=== PATIENT | female | born 1940 | race Caucasian/White ===

== ENCOUNTER → 2018-02-01 | Outpatient (CLI) | payer MEDICARE, OTHER | END | disposition home or self-care (01) | LOC: RAH 14:19 | PROVIDERS: ATTEND Pediatrics | DX: Z12.31 Encounter for screening mammogram for malignant neoplasm of breast (principal) | CPT/HCPCS: 77067 ==

== ENCOUNTER 2018-10-10 13:32 | Inpatient (IN) | payer MEDICARE ==
[~2018-10-10] VITALS: Ht 165.1 cm; Wt 67.0 kg
[2018-10-10] VITALS (33 sets, daily range): BP systolic 117–155; BP diastolic 70–114
[2018-10-10] MEDS ORDERED: ATROPINE SULFATE 0.1 MG/ML 10 ML SYG IVP ONE (13:38)
[2018-10-10] MEDS ORDERED: BIVALIRUDIN 250 MG/VIAL IV ONE (13:38)
[2018-10-10] MEDS ORDERED: IOHEXOL 350 MG/ML 100ML INFUS..BTL IV ONE (13:39)
[2018-10-10] MEDS ORDERED: LIDOCAINE HCL 2% 20ML ONE (13:39)
[2018-10-10] MEDS ORDERED: NITROGLYCERIN 5 MG/ML 10 ML VIAL IV ONE (13:39)
[2018-10-10] MEDS ORDERED: DOPAMINE HCL 400 MG/D5%-WATER 0 ML IV ONE (13:39)
[2018-10-10] MEDS ORDERED: PROPOFOL 1000 MG/100 ML 100 ML IV ONE ×2 (13:41→18:29)
[2018-10-10 13:52] LABS: CREATININE 0.9 mg/dL (0.5-1.5); POTASSIUM 3.7 mmol/L (3.5-5.1)
[2018-10-10] MEDS ORDERED: MIDAZOLAM HCL 1 MG/ML 2ML VIAL ONE (13:54)
[2018-10-10] MEDS ORDERED: FENTANYL CITRATE PF 50 MCG/1 ML 2ML VIAL ONE (13:55)
[2018-10-10] MEDS ORDERED: ROCURONIUM 10MG/1ML SYR 10 MG/ML ML ONE (13:55)
[2018-10-10] MEDS ORDERED: PROPOFOL 10 MG/ML 20ML VIAL IV ONE (13:55)
[2018-10-10 14:00] LABS: INR 1.02 (0.85-1.15); PARTIAL THROMBOPLASTIN TIME 28.9 SEC (26.3-35.5); PROTHROMBIN TIME 10.7 SEC (9.6-11.6)
[2018-10-10] MEDS ORDERED: HEPARIN SODIUM 1000UNIT/ML 10ML VIAL ONE (14:02)
[2018-10-10 14:03] LABS: BASOPHILS % (AUTO) 0.9 % (0.0-5.0); EOSINOPHILS % (AUTO) 0.4 % (0.0-8.0); HEMATOCRIT 36.3 % (36-48); LYMPHOCYTES % (AUTO) 11.1 % (21.0-51.0); MEAN CORPUSCULAR HEMOGLOBIN 30.6 pg (27.0-33.0); MEAN CORPUSCULAR HGB CONC 33.7 g/dL (32.0-36.0); MEAN CORPUSCULAR VOLUME 90.8 fL (79-99); MONOCYTES % (AUTO) 5.8 % (3.0-13.0); NEUTROPHILS % (AUTO) 81.8 % (40.0-77.0); PLATELET COUNT (AUTO) 246 K/uL (130-400); WHITE BLOOD COUNT (AUTO) 9.6 K/uL (4.8-10.8)
[2018-10-10 14:06] LABS: ALBUMIN 2.6 g/dL (3.5-5.0); BILIRUBIN,TOTAL 0.3 mg/dL (0.2-1.0); TOTAL PROTEIN, SERUM 5.8 g/dL (6.0-8.3)
[2018-10-10] MEDS ORDERED: EPTIFIBATIDE 75MG/100ML BOTTLE 100 ML IV ONE (14:06)
[2018-10-10] MEDS ORDERED: EPTIFIBATIDE 2 MG/ML 10 ML VIAL IVP ONE (14:06)
[2018-10-10] MEDS ORDERED: HEPARIN 25000 UNITS/250 ML D5W 250 ML IV ONE (15:08)
[2018-10-10] MEDS ORDERED: MORPHINE SULFATE 2 MG/ML 1ML SYG IV PRN (15:15)
[2018-10-10] MEDS ORDERED: MORPHINE SULFATE 4 MG/1ML SYG IV PRN (15:15)
[2018-10-10] MEDS ORDERED: GLUCAGON 1MG KIT 1 MG ML IM PRN (15:15)
[2018-10-10] MEDS ORDERED: PROPOFOL 10 MG/ML 20ML VIAL IV SCH (15:15)
[2018-10-10] MEDS ORDERED: ONDANSETRON HCL 4 MG/2 ML VIAL IV PRN (15:15)
[2018-10-10] MEDS ORDERED: DEXTROSE 50%-WATER 50 ML DISP.SYRIN IV PRN (15:15)
[2018-10-10] MEDS ORDERED: PRASUGREL HCL 10 MG TABLET ONE (15:41)
[2018-10-10] MEDS ORDERED: ASPIRIN 81MG TAB.CHEW ONE (15:41)
[2018-10-10] MEDS ORDERED: SODIUM CHLORIDE 0.9% 500ML 500 ML IV ONE (16:06)
[2018-10-10] MEDS ORDERED: PRASUGREL HCL 10 MG TABLET PO ONE (16:30)
[2018-10-10] MEDS ORDERED: HEPARIN 25,000 UNITS/250 ML IV PRN (16:30)
[2018-10-10] MEDS ORDERED: ENALAPRILAT DIHYDRATE 1.25MG/ML 1ML VIAL IV SCH (16:30)
[2018-10-10] MEDS ORDERED: SODIUM CHLORIDE 0.9% 1000ML 1,000 ML IV SCH (16:30)
[2018-10-10] MEDS ORDERED: HEPARIN IV SCH ×4 (16:45)
[2018-10-10] MEDS ORDERED: NS IV SCH (16:45)
[2018-10-10] MEDS ORDERED: SODIUM CHLORIDE IV SCH ×4 (16:45)
[2018-10-10] MEDS ORDERED: DEXTROSE IJ PRN ×3 (16:45)
[2018-10-10] MEDS ORDERED: HEPARIN IJ PRN ×3 (16:45)
--- NOTE | 2018-10-10 17:00 | NUR ---
HYPOTHERMIA COOLING BEGUN ORDERED UTILIZING [facility] COOLING SYSTEM
[2018-10-10 17:04] LABS: ABG BASE EXCESS -6.7 mmol/L (-2.0-3.0); ABG HCO3 19.9 mmol/L (21.0-28.0); ABG OXYGEN SATURATION 99.9 % (95.0-99.0); ABG PCO2 44 mmHg (32-45)
[2018-10-10 17:29] LABS: HEMATOCRIT 39.8 % (36-48); MEAN CORPUSCULAR HEMOGLOBIN 30.7 pg (27.0-33.0); MEAN CORPUSCULAR HGB CONC 33.4 g/dL (32.0-36.0); MEAN CORPUSCULAR VOLUME 91.9 fL (79-99); PLATELET COUNT (AUTO) 273 K/uL (130-400); RED BLOOD CELL COUNT(AUTO) 4.33 MIL/uL (4.00-5.50); RED CELL DISTRIBUTION WIDTH 14.1 % (11.0-15.5); WHITE BLOOD COUNT (AUTO) 12.8 K/uL (4.8-10.8)
[2018-10-10 17:39] LABS: CREATININE 0.8 mg/dL (0.5-1.5); POTASSIUM 4.2 mmol/L (3.5-5.1)
[2018-10-10 17:43] LABS: ALBUMIN 2.9 g/dL (3.5-5.0); BILIRUBIN,TOTAL 0.5 mg/dL (0.2-1.0); MAGNESIUM 1.9 mg/dL (1.80-2.40); TOTAL PROTEIN, SERUM 6.5 g/dL (6.0-8.3)
[2018-10-10 17:46] LABS: ABG BASE EXCESS -2.7 mmol/L (-2.0-3.0); ABG HCO3 21.8 mmol/L (21.0-28.0); ABG OXYGEN SATURATION 99.5 % (95.0-99.0); ABG PCO2 37 mmHg (32-45)
[2018-10-10] MEDS ORDERED: ESTROGEN PATCH TP (17:51)
[2018-10-10 18:00] LABS: B-TYPE NATRIURETIC PEPTIDE 47 pg/mL (0-100)
[2018-10-10] MEDS: INSULIN HUMULIN R 100 UNIT/ML 3ML SQ SCH (18:00)
[2018-10-10] MEDS ORDERED: ENALAPRILAT DIHYDRATE 1.25 MG/ML 2ML VIAL IVP ONE (18:04)
--- NOTE | 2018-10-10 18:07 | NUR ---
PT HAS BEEN SEEN BY DR ANDRE AND DR MERCADO AT THE BEDSIDE. DR DEL CID HAS BEEN NOTIFIED OF CONSULT. . PT IS ON VENT AC RATE 16/TV-500/PEEP-5/FIO2 50%. BBS PRESENT. GARNETT CATH HAS BEEN INSERTED BY Janeth REY RN. RT GORIN WITH NO HEMATOMA OR BLEEDING. LEFT LOWER LEG I.O. CATH IN PLACE. RT VENOUS FEMORAL SHEATH IS PATENT. SWAN TO RT GROIN LUX AT 70CM. IMPELLA CATH LUX AT 88CM. VS STABLE . FIRST SET OF HEMODYNAMICS DONE.
[2018-10-10] MEDS ORDERED: PROPOFOL 1000 MG/100 ML IV PRN (18:30)
[2018-10-10] MEDS: DEXTROSE IJ PRN ×2 (18:37)
[2018-10-10] MEDS: HEPARIN SODIUM IJ PRN ×2 (18:37)
[2018-10-10 19:07] LABS: TROPONIN I 509.98 ng/mL (0.00-0.06)
--- NOTE | 2018-10-10 19:51 | NUR ---
Dr. Elder notification Dr. Elder notified of patient's current status and hemodynamic vitals signs. No orders received
[2018-10-10] MEDS: ATORVASTATIN CALCIUM 40 MG TABLET PO SCH (21:00)
[2018-10-10] MEDS: CHLORHEXIDINE GLUCONATE 473 ML MOUTHWASH MM SCH (21:58)
[2018-10-10] MEDS: ENALAPRILAT DIHYDRATE 1.25MG/ML 1ML VIAL IV SCH (22:59)
[2018-10-10] MEDS: PROPOFOL 1000 MG/100 ML 100 ML IV PRN (23:00)
[2018-10-11] VITALS (39 sets, daily range): BP systolic 73–160; BP diastolic 42–95
[2018-10-11 00:40] LABS: TROPONIN I 277.31 ng/mL (0.00-0.06)
[2018-10-11 00:46] LABS: APPEARANCE,URINE CLOUDY (CLEAR); BILIRUBIN,URINE SMALL (NEGATIVE); COLOR,URINE ORANGE (YELLOW); GLUCOSE, URINE (UA) NEGATIVE (NEGATIVE); KETONES,URINE 15 mg/dL (NEGATIVE); LEUKOCYTE ESTERASE ,URINE TRACE (NEGATIVE); NITRATE,URINE POSITIVE (NEGATIVE); OCCULT BLOOD,URINE LARGE (NEGATIVE); PROTEIN,URINE 100 mg/dL (NEGATIVE)
[2018-10-11 00:56] LABS: CREATININE 0.6 mg/dL (0.5-1.5); MAGNESIUM 1.7 mg/dL (1.80-2.40)
--- NOTE | 2018-10-11 01:19 | NUR ---
Impella suppor line called. Called impella support tech rep. notified or urine output and waveform on impella for opinion.
[2018-10-11] MEDS: MAGNESIUM 2GM PREMIX 50ML 50 ML IV PRN (01:38)
[2018-10-11 01:41] LABS: BACTERIA,URINE Moderate /HPF (None Seen); RBC,URINE TNTC /HPF (0-1)
--- NOTE | 2018-10-11 01:58 | NUR ---
Dr. York called multiple times First notification pending call back at [phone]: Dr. York called to notify of patients current status, hemodynamic vital signs, changes in HR to sinus bradycardia with frequent PVC's, hematuria, UA results, severe decrease in urine output despite fluids running, awating call back. Second notification with pending call back at [phone]. third notification with pending call back at 05: Called to notify Dr. York of same pt condition and morning labs result. Fourth notification with pending call back at 0555: Tried MD pager still no call back
--- NOTE | 2018-10-11 02:30 | NUR ---
Dr. Elder notification Dr. Elder notified of patient's current status, hemodynamic vital signs, changes in HR to sinus bradycardia with frequent PVC's, hematuria, UA results, severe decrease in urine output despite fluids running, no orders received
[2018-10-11 04:25] LABS: ABG BASE EXCESS -3.1 mmol/L (-2.0-3.0); ABG HCO3 20.1 mmol/L (21.0-28.0); ABG OXYGEN SATURATION 98.9 % (95.0-99.0); ABG PCO2 31 mmHg (32-45)
[2018-10-11] MEDS: ENALAPRILAT DIHYDRATE 1.25MG/ML 1ML VIAL IV SCH ×3 (04:30→15:24)
[2018-10-11] MEDS: PROPOFOL 1000 MG/100 ML 100 ML IV PRN ×4 (04:40→20:31)
[2018-10-11 04:56] LABS: HEMATOCRIT 36.9 % (36-48); MEAN CORPUSCULAR HEMOGLOBIN 31.3 pg (27.0-33.0); MEAN CORPUSCULAR HGB CONC 34.3 g/dL (32.0-36.0); MEAN CORPUSCULAR VOLUME 91.4 fL (79-99); PLATELET COUNT (AUTO) 284 K/uL (130-400); RED BLOOD CELL COUNT(AUTO) 4.03 MIL/uL (4.00-5.50); RED CELL DISTRIBUTION WIDTH 14.2 % (11.0-15.5); WHITE BLOOD COUNT (AUTO) 12.7 K/uL (4.8-10.8)
[2018-10-11 05:13] LABS: B-TYPE NATRIURETIC PEPTIDE 193 pg/mL (0-100)
[2018-10-11 05:17] LABS: ALANINE AMINOTRANSFERASE 63 U/L (12-78); ALBUMIN 2.6 g/dL (3.5-5.0); BILIRUBIN,DIRECT < 0.1 mg/dL (0.0-0.3); BILIRUBIN,TOTAL 0.8 mg/dL (0.2-1.0); CARBON DIOXIDE 24 mmol/L (21-32); CHLORIDE 103 mmol/L (101-111); CHOLESTEROL 176 mg/dL (<200); CREATININE 0.8 mg/dL (0.5-1.5); GLOMERULAR FILTR. RATE CALC 74 mL/min (>60); GLUCOSE,RANDOM 126 mg/dL (70-105); HDL CHOLESTEROL 63 mg/dL (35-85); LDL DIRECT 103 mg/dL (0-99); PHOSPHORUS 2.2 mg/dL (2.5-4.9); POTASSIUM 4.1 mmol/L (3.5-5.1); SODIUM SERUM 137 mmol/L (136-145); TOTAL PROTEIN, SERUM 5.9 g/dL (6.0-8.3); TRIGLYCERIDES 578 mg/dL (30-200); UREA NITROGEN, BLOOD 16 mg/dL (7-18)
[2018-10-11 05:21] LABS: BAND NEUTROPHILS % (MANUAL) 3 % (0-2); LYMPHOCYTES % (MANUAL) 23 % (22-44); SEGMENTED NEUTROPHILS % 74 % (40-70)
[2018-10-11 05:23] LABS: MAN.DIFF COMMENT-IMPRESSION MANUAL DIFFERENTIAL
[2018-10-11 05:24] LABS: PLATELET MORPHOLOGY COMMENT ADEQUATE
[2018-10-11 05:34] LABS: ASPARTATE AMINOTRANSFERASE 440 U/L (10-37)
--- NOTE | 2018-10-11 05:35 | NUR ---
Dr. Elder notification Dr. Elder notified of patients current status, urine color, urine output, morning ABG results, morning labs, current medications, and most recent hemodynamic vital signs. orders received, readback, and entered into system.
[2018-10-11 05:41] LABS: HEMOGLOBIN A1C 5.5 % (4.0-6.0)
[2018-10-11] MEDS ORDERED: DEXTROSE 5%-WATER 500 ML IV ONE (05:46)
[2018-10-11] MEDS: INSULIN HUMULIN R 100 UNIT/ML 3ML SQ SCH ×4 (06:00→17:39)
[2018-10-11] MEDS ORDERED: LACTATED RINGERS 1000ML IV ONE (06:00)
[2018-10-11 06:01] LABS: TROPONIN I 131.02 ng/mL (0.00-0.06)
[2018-10-11] MEDS: LACTATED RINGERS 1000ML 1,000 ML IV ONE ×2 (06:02→06:44)
[2018-10-11] MEDS: CEFTRIAXONE SODIUM 1 GM IVP SCH (07:11)
--- NOTE | 2018-10-11 08:35 | NUR ---
SEDATED. AIRWAY PATENT AND ET TUBE INTACT. BBS PRESENT. OG WITH COFFEE GROUND CONTENTS TO LIWS. RT HAND AND ARM ARE EDEMATOUS AND TIGHT. RADIAL PULSES PRESENT TO RT ARM BY DOPPLER. I REMOVED THE DRESSING TO ALLOW BETTER BLOOD FLOW AND WILL NOT TAKE BP ON THIS RT ARM. RT ARM ELEVATED ON PILLOW. WILL FOLLOW O2SATS FOR NOW -NO ABG'S. GARNETT CATH URINE OUTPUT DECREASED AND NOW CONCENTRATED AND CLOUDY PINK TINGED. INTRAOSSEOUS NEEDLE REMOVED INTACT FROM LEFT TIBIA. CXR REVIEWED AND IMPELLA CATH AND SWAN IN SAME PLACE FROM YESTERDAY. SWAN LUX AT 70CM AND IMPELLA AT 88CM. RT GROIN CATH SITE INTACT. HEPARIN HAS BEEN RESUMED AT A TOTAL OF 750 UNITS PER HR COMBINED WITH IMPELLA INPUT (200 UNITS IV/550 UNITS IMPELLA).
--- NOTE | 2018-10-11 09:12 | NUR ---
BELONGINGS- 5 SILVER COLORED RINGS WITH CRYSTAL COLORED STONES GIVEN TO PATO WORRELL YESTERDAY DURING ADMISSION
[2018-10-11] MEDS: CHLORHEXIDINE GLUCONATE 473 ML MOUTHWASH MM SCH ×2 (09:51→20:32)
[2018-10-11] MEDS: FAMOTIDINE/PF 20 MG/2 ML VIAL IV SCH (09:51)
[2018-10-11] MEDS: ASPIRIN 81MG TAB.CHEW PO SCH (09:51)
[2018-10-11] MEDS: PRASUGREL HCL 10 MG TABLET PO SCH (10:02)
[2018-10-11] MEDS ORDERED: LACTATED RINGERS 1000ML 1,000 ML IV SCH (11:45)
[2018-10-11] MEDS: SODIUM CHLORIDE 0.9% 1000ML 1,000 ML IV SCH ×2 (11:58→20:31)
--- NOTE | 2018-10-11 12:00 | NUR ---
DR MERCADO AND DR ANDRE BOTH AT BEDSIDE MAKING ROUNDS AND CONSULTING WITH EACH OTHER. BOTH GAVE ORDERS. HEPARIN IV DRIP IS OFF AND WE WILL ONLY UTILIZE THE HEPARIN BEING GIVEN BY THE IMPELLA DEVICE. BOTH MDS ARE AWARE OF THE RT HAND HEMATOMA .
[2018-10-11] MEDS: LISINOPRIL 5 MG TABLET PO SCH ×2 (12:05→20:32)
[2018-10-11] MEDS ORDERED: LISINOPRIL 5 MG TABLET PO SCH (12:40)
--- NOTE | 2018-10-11 13:12 | NUR ---
NEURO- PT IS RESPONSIVE NOW. OPENS EYES TO VOICE. NODS YES AND NO. CALM.COMFORTABLE
--- NOTE | 2018-10-11 13:56 | NUR ---
PT TEMP NOW 97.6-COOLING SYSTEM REMOVED. SHE IS MOVING ALL 4 EXTREMITIES AT RANDOM
--- NOTE | 2018-10-11 15:49 | NUR ---
PT'S MR PATO WORRELL CALLED US AND I GAVE HIM AN UPDATE ON HIS 'S STATUS. HE IS AN ILL AND DISABLED MAN AND ASKED ME TO HAVE HIS NEIGHBORS BE GIVEN INFO FREELY. I LET HIM KNOW THAT WE WOULD HONOR HIS REQUEST BUT HE STILL HAS TO GIVE CONSENT AND BE PRESENT WITH ALL DISCUSSIONS VIA PHONE OR AT BEDSIDE. I LET HIM KNOW THAT HE WOULD STILL HAVE TO BE THE ONE TO MAKE ALL DECISIONS UNTIL HIS CAN SPEAK FOR HERSELF.
--- NOTE | 2018-10-11 16:42 | NUR ---
DC PLAN VISITED WITH PATIENT. PATIENT IN CRITICAL CONDITION. NO FAMILY AT BEDSIDE. PATIENT IS VENTED. Addendum: 10/11/18 at 1650 by PHOENIX CERVANTES RN CM Amended: Links added.
--- NOTE | 2018-10-11 18:38 | NUR ---
DR ANDRE NOTIFIED WITH CURRENT URINE OUTPUT,VS,IVF'S,CVP,PAWP. NO NEW ORDERS FROM DR ANDRE. PAWP NOW 9. GIVING NS 300ML BOLUS PER DR MERCADO ORDERS.
--- NOTE | 2018-10-11 19:30 | NUR ---
ASSESSMENT PT RESTING IN BED INTUBATED, SEDATED WITH IMPELLA AT IN USE AT BEDSIDE. SEE IMPELLA FLOW SHEET, NURSING ASSESSMENT, ANTICOAGULATION RECORD FOR MORE INFORMATION. CALLBELL WITHIN REACH, WHITE BOARD UP-DATED.
[2018-10-11] MEDS: ATORVASTATIN CALCIUM 40 MG TABLET PO SCH (20:31)
[2018-10-12] VITALS (35 sets, daily range): BP systolic 70–151; BP diastolic 38–89
[2018-10-12 00:48] LABS: INR 0.99 (0.85-1.15); PARTIAL THROMBOPLASTIN TIME 41.8 SEC (26.3-35.5); PROTHROMBIN TIME 10.4 SEC (9.6-11.6)
[2018-10-12] MEDS: PROPOFOL 1000 MG/100 ML 100 ML IV PRN ×4 (00:53→23:11)
[2018-10-12 03:59] LABS: BASOPHILS % (AUTO) 0.6 % (0.0-5.0); EOSINOPHILS % (AUTO) 0.2 % (0.0-8.0); HEMATOCRIT 30.5 % (36-48); LYMPHOCYTES % (AUTO) 7.7 % (21.0-51.0); MEAN CORPUSCULAR HEMOGLOBIN 31.1 pg (27.0-33.0); MEAN CORPUSCULAR HGB CONC 34.3 g/dL (32.0-36.0); MEAN CORPUSCULAR VOLUME 90.6 fL (79-99); MONOCYTES % (AUTO) 8.3 % (3.0-13.0); NEUTROPHILS % (AUTO) 83.2 % (40.0-77.0); NUCLEATED RED BLOOD CELLS 0.1 % (0.0-0.19); PLATELET COUNT (AUTO) 201 K/uL (130-400); RED BLOOD CELL COUNT(AUTO) 3.37 MIL/uL (4.00-5.50); RED CELL DISTRIBUTION WIDTH 14.8 % (11.0-15.5); WHITE BLOOD COUNT (AUTO) 13.8 K/uL (4.8-10.8)
[2018-10-12 04:07] LABS: INR 1.01 (0.85-1.15); PARTIAL THROMBOPLASTIN TIME 43.2 SEC (26.3-35.5); PROTHROMBIN TIME 10.6 SEC (9.6-11.6)
[2018-10-12 04:11] LABS: B-TYPE NATRIURETIC PEPTIDE 151 pg/mL (0-100)
[2018-10-12 04:38] LABS: ALBUMIN 2.1 g/dL (3.5-5.0); BILIRUBIN,TOTAL 0.4 mg/dL (0.2-1.0); CREATININE 0.7 mg/dL (0.5-1.5); PHOSPHORUS 2.8 mg/dL (2.5-4.9); POTASSIUM 3.4 mmol/L (3.5-5.1); TOTAL PROTEIN, SERUM 5.1 g/dL (6.0-8.3)
--- NOTE | 2018-10-12 05:12 | NUR ---
DR KEVIN BROWN MADE AWARE OF PT/PTT/INR. NO NEW ORDERS AT PRESENT.
[2018-10-12 05:15] LABS: TROPONIN I 44.95 ng/mL (0.00-0.06)
[2018-10-12] MEDS: INSULIN HUMULIN R 100 UNIT/ML 3ML SQ SCH ×4 (06:00→17:55)
[2018-10-12] MEDS: CEFTRIAXONE SODIUM 1 GM IVP SCH (06:21)
--- NOTE | 2018-10-12 06:45 | NUR ---
REPORT BEDSIDE REPORT GIVEN TO KAITLYNN DIAZ.
[2018-10-12] MEDS: HEPARIN SODIUM IJ PRN ×2 (06:51)
[2018-10-12] MEDS: DEXTROSE IJ PRN ×2 (06:51)
[2018-10-12] MEDS: POTASSIUM CHLORIDE 20MEQ/100ML 100 ML IV PRN (07:41)
[2018-10-12] MEDS: CHLORHEXIDINE GLUCONATE 473 ML MOUTHWASH MM SCH ×2 (07:42→20:26)
--- NOTE | 2018-10-12 07:50 | NUR ---
PT ASSESSED. SEDATION VACATION PERFORMED- SHE IS ABLE TO OPEN EYES,NODS YES AND NO, MOVES ALL EXTREMITIES ON COMMAND. RTH HAND SWELLING IS IMPROVING AND BEGINNING TO SOFTEN. I HAVE IT ELEVATED ABOVE HEART AND RT HAND HAS STRONG PALPABLE RADIAL PULSES. NO BLEEDING NOTED TO RT RADIAL ABG SITE. I HAVE PLACED AN ARM PRECAUTION BAND TO RT WRIST AND SIGN TO DOOR. FOR COMFORT I HAVE RESTARTED DIPRIVAN. RT GROIN IMPELLA AND SWAN SITE WITH NO HEMATOMA.
--- NOTE | 2018-10-12 08:22 | NUR ---
CHART CHECK COMPLETED. PATIENT INFORMATION: Pt IS A 78 YEAR OLD FEMALE ADMITTED SECONDARY TO [id number] AR[facility] SECONDARY TO PULSELESS VENTRICULAR TACHYCARDIA, MS, S/P LEFT HEART CATH WITH STENTING OF LAD. Pt HAS A PAST MEDICAL HISTORY SIGNIFICANT FOR ACUTE SYSTOLIC HEART FAILURE, AND COPD. RECOMMEND SKILLED SPEECH THERAPY 24 HOURS S/P EXTUBATION. TOBACCO SWEEPER COORDINATED CARE WITH NURSE DONALD. Addendum: 10/12/18 at 0825 by WING LYMAN Amended: Links added.
--- NOTE | 2018-10-12 08:27 | NUR ---
DR MERCADO HAS FINISHED AM ROOUNDS WITH PATIENT. UPDATED ON STATUS (MEDS/VS/IO'S/LABS/HEMODYNAMICS).. HE HAS HAD ME REDUCE FLOW RATE ON IMPELLA TO 2 AT PRESENT TIME. WILL REASSESS CO/PAWP AND REPORT TO HIM BRY.
[2018-10-12] MEDS: PRASUGREL HCL 10 MG TABLET PO SCH (09:00)
--- NOTE | 2018-10-12 09:00 | NUR ---
DR MERCADO CONTACTED WITH PAWP/CARDIAC OUTPUTS POST IMPELLA CHANGES- HE HAS ASKED ME TO CONSULT DR NGUYEN FOR IMPELLA REMOVAL.
--- NOTE | 2018-10-12 09:15 | NUR ---
CONTACTED - HE CANNOT PHYSICALLY COME IN TO SIGN CONSENT HE IS DISABLED AND HAS O2 AT HOME. HE GAVE TELEPHONE CONSENT FOR REMOVAL OF IMPELLA DEVICE.HE ASKS ME TO SPEAK TO RODGER PERKINS HIS NEIGHBOR WHEN SHE ARRIVES
[2018-10-12 09:21] LABS: HEMATOCRIT 29.9 % (36-48); MEAN CORPUSCULAR HEMOGLOBIN 30.5 pg (27.0-33.0); MEAN CORPUSCULAR HGB CONC 34.1 g/dL (32.0-36.0); MEAN CORPUSCULAR VOLUME 89.6 fL (79-99); PLATELET COUNT (AUTO) 190 K/uL (130-400); RED BLOOD CELL COUNT(AUTO) 3.34 MIL/uL (4.00-5.50); RED CELL DISTRIBUTION WIDTH 14.7 % (11.0-15.5); WHITE BLOOD COUNT (AUTO) 14.1 K/uL (4.8-10.8)
--- NOTE | 2018-10-12 09:30 | NUR ---
SWAN YOEL CATH REMOVED INTACT FROM RT GROIN VENOUS SHEATH. SHEATH REMAINS IN PLACE AND HAS IVF RUNNING THROUGH IT.
--- NOTE | 2018-10-12 09:33 | NUR ---
DR VICK HERE AND SEE'S PATIENT. HISTORY OF EVENTS SHARED WITH MD. HE WILL BE DOING REMOVAL OF IMPELLA TODAY. ORDERS RECEIVED
[2018-10-12 09:41] LABS: LYMPHOCYTES % (MANUAL) 10 % (22-44); MONOCYTES % (MANUAL) 4 % (2-9); SEGMENTED NEUTROPHILS % 86 % (40-70)
[2018-10-12 09:42] LABS: MAN.DIFF COMMENT-IMPRESSION MANUAL DIFFERENTIAL; PLATELET MORPHOLOGY COMMENT ADEQUATE
[2018-10-12] MEDS: ASPIRIN 81MG TAB.CHEW PO SCH (09:55)
[2018-10-12] MEDS: LISINOPRIL 5 MG TABLET PO SCH ×3 (09:56→20:26)
[2018-10-12] MEDS: FAMOTIDINE/PF 20 MG/2 ML VIAL IV SCH (09:56)
--- NOTE | 2018-10-12 11:37 | NUR ---
PT TAKEN TO O.R. BY SURGICAL TEAM
[2018-10-12] MEDS ORDERED: BACITRACIN 50,000 UNIT VIAL ONE (11:52)
[2018-10-12] MEDS ORDERED: OCTYL 2-CYANOACRYLATE 1 EACH TP ONE (11:52)
[2018-10-12] MEDS ORDERED: CEFAZOLIN SODIUM 1 GM VIAL ONE (11:54)
[2018-10-12] MEDS ORDERED: FENTANYL CITRATE PF 50 MCG/1 ML 5ML AMP IV ONE (12:13)
[2018-10-12] MEDS ORDERED: MIDAZOLAM HCL 1 MG/ML 5ML VIAL ONE (12:24)
[2018-10-12] MEDS: SODIUM CHLORIDE 0.9% 1000ML 1,000 ML IV SCH (13:11)
--- NOTE | 2018-10-12 13:35 | NUR ---
NAM PLAN PATIENT DOWN FOR PROCEDURE REMOVAL OF IMPALLA. NO FAMILY IN ROOM. LARISA WILL CONTINUE TO FOLLOW. Addendum: 10/12/18 at 1336 by PHOENIX CERVANTES RN CM Amended: Links added.
[2018-10-12] MEDS ORDERED: VANCOMYCIN PROTOCOL PER PHARMACY IV SCH (14:00)
[2018-10-12] MEDS ORDERED: ZOSYN 3.375GM+NS 50ML 50 ML IV SCH (14:00)
[2018-10-12] MEDS ORDERED: COMPOUND IV REFRIGERATED 1 EACH IVSOLN MISC PRN (14:00)
--- NOTE | 2018-10-12 14:00 | NUR ---
DR MERCADO CALLED AT HIS OFFICE-MESSAGE LEFT FOR HIM TO CALL ME. IT IS IN REGARDS TO PT JUNCTIONAL RHYTHM RATE OF 97. ALSO TO LET HIM KNOW POST OP STATUS. PT RT GROIN CUTDOWN SITE DRESSING CLEAN AND DRY ALSO NO BLEEDING FROM OLD VENOUS SHEATH SITE. BOTH THE IMPELLA CATHETER AND VENOUS SHEATH ARE GONE. PT NOW HAS A LEFT AXILLARY ARTERIAL LINE AND THAT SITE IS INTACT WITH NO HEMATOMA OR BLEEDING. ALL PERIPHERAL PULSES ARE PALPABLE FROM WRISTS TO FEET. EKG DONE TO CAPTURE JUNCTIONAL RYTHM. HR IS INTERMITTENT SINUS RHYTHM/JUNCTIONAL . PT ON PREVIOUS VENT SETTINGS. I HAVE NOT RESUMED DIPRIVAN DUE TO LOW BP. SHE IS OPENING EYES AN HAS COUGH REFLE
--- NOTE | 2018-10-12 14:50 | NUR ---
DR MERCADO CALLS ME BACK-ORDERS RECEIVED
[2018-10-12] MEDS ORDERED: ATROPINE SULFATE 0.1 MG/ML 10 ML SYG IVP PRN (15:00)
[2018-10-12] MEDS: VANCOMYCIN 1.25 GM in SODIUM CHLORIDE 0.9% 250 ML IV SCH (15:04)
--- NOTE | 2018-10-12 15:30 | NUR ---
PT ARTERIAL SBP FALLS BELOW 80 WITH JUNCTIONAL RHYTHM (NO P WAVES). I HAVE GIVEN THE ATROPINE THAT DR MERCADO ORDERED AND RHYTHM CHANGED TO SINUS TACH 113 WITH P WAVES. ABP IMPROVED TO 94/51
[2018-10-12] MEDS: ZOSYN 3.375GM+NS 50ML 50 ML IV SCH ×2 (17:06→23:09)
--- NOTE | 2018-10-12 19:10 | NUR ---
HAND OFF REPORT AND CHART REVIEW DONE WITH ANDRE DIAZ
--- NOTE | 2018-10-12 19:30 | NUR ---
ASSESSMENT PT RESTING IN BED INTUBATED, SEDATED. SEE [facility] NURSING ASSESSMENT FLOW SHEET FOR MORE INFORMATION. MELONIE REVIEWED AND WITHIN DONTAE, WHITE BOARD UP-DATED.
[2018-10-12] MEDS: ATORVASTATIN CALCIUM 40 MG TABLET PO SCH (20:26)
[2018-10-13] VITALS (24 sets, daily range): BP systolic 83–153; BP diastolic 40–84
[2018-10-13] MEDS: VANCOMYCIN 1.25 GM in SODIUM CHLORIDE 0.9% 250 ML IV SCH ×2 (01:39→14:03)
[2018-10-13 03:40] LABS: BASOPHILS % (AUTO) 0.5 % (0.0-5.0); EOSINOPHILS % (AUTO) 0.4 % (0.0-8.0); HEMATOCRIT 23.3 % (36-48); LYMPHOCYTES % (AUTO) 7.5 % (21.0-51.0); MEAN CORPUSCULAR HEMOGLOBIN 30.9 pg (27.0-33.0); MEAN CORPUSCULAR HGB CONC 34.3 g/dL (32.0-36.0); MEAN CORPUSCULAR VOLUME 89.9 fL (79-99); MONOCYTES % (AUTO) 8.5 % (3.0-13.0); NEUTROPHILS % (AUTO) 83.1 % (40.0-77.0); PLATELET COUNT (AUTO) 154 K/uL (130-400); RED CELL DISTRIBUTION WIDTH 14.8 % (11.0-15.5); WHITE BLOOD COUNT (AUTO) 13.1 K/uL (4.8-10.8)
[2018-10-13 04:01] LABS: CREATININE 0.8 mg/dL (0.5-1.5); POTASSIUM 3.6 mmol/L (3.5-5.1)
[2018-10-13] MEDS: INSULIN HUMULIN R 100 UNIT/ML 3ML SQ SCH ×4 (06:00→17:55)
[2018-10-13] MEDS: SODIUM CHLORIDE 0.9% 1000ML 1,000 ML IV SCH (06:07)
[2018-10-13] MEDS: POTASSIUM CHLORIDE 20MEQ/100ML 100 ML IV PRN (06:08)
[2018-10-13] MEDS: ZOSYN 3.375GM+NS 50ML 50 ML IV SCH ×2 (08:38→17:29)
[2018-10-13] MEDS: LISINOPRIL 5 MG TABLET PO SCH ×3 (09:00→21:45)
[2018-10-13] MEDS: FAMOTIDINE/PF 20 MG/2 ML VIAL IV SCH (09:19)
[2018-10-13] MEDS: ASPIRIN 81MG TAB.CHEW PO SCH (09:19)
[2018-10-13] MEDS: CHLORHEXIDINE GLUCONATE 473 ML MOUTHWASH MM SCH ×2 (09:19→21:46)
[2018-10-13] MEDS: PRASUGREL HCL 10 MG TABLET PO SCH (09:22)
[2018-10-13] MEDS ORDERED: FUROSEMIDE 10 MG/ML 4ML VIAL IV SCH (11:00)
[2018-10-13 11:13] LABS: ABG BASE EXCESS -6.1 mmol/L (-2.0-3.0); ABG HCO3 17.7 mmol/L (21.0-28.0); ABG PCO2 31 mmHg (32-45)
--- NOTE | 2018-10-13 12:50 | NUR ---
REPORT GIVEN TO MARIA TERESA Crane RN. ALL QUESTIONS ANSWERED.
--- NOTE | 2018-10-13 13:00 | NUR ---
ASSUMED CARE OF PT. RESTING IN BED WITH HOB AT 15 DEGREES, RESP.'S EVEN AND UNLABORED. DENIES ANY C/O SOB, DENIES ANY CURRENT PAIN. AEROSOL MASK IN PLACE WITH FIO2 AT 40%. RIGHT ARM NOTED TO HAVE ECCHYMOSIS AND RESOLVING EDEMA; PT. DENIES ANY PAIN TO ARM. DENIES ANY C/O NUMBNESS OR TINGLING TO FINGERS. ABD SOFT WITH (+) BOWEL SOUNDS, DENIES ANY C/O N/V. REMINDED PT. OF NPO STATUS DUE TO RECENT EXTUBATION, VERBALIZED UNDERSTANDING. RIGHT GROIN WITH DRSG IN PLACE, D/I. F/C IN PLACE, SECURE TO THIGH. BLE'S WITH SCD'S IN PLACE. COMPLETE ASSESSMENT DONE, CALL LIGHT WITHIN REACH. BED LOW, SIDE RAILS UP X2, PT. VISIBLE FROM NURSE'S STATION.
--- NOTE | 2018-10-13 14:41 | NUR ---
RD Notification Pt admitted for anterior stemi. Pt extubated and will no longer need feeding recommendations at this time, as per RN. Pt NPO at this time. When medically feasible, Rec to advance diet as tolerated. RD to continue to monitor. Please notify RD as additional nutrition concerns arise. Thank you. Addendum: 10/13/18 at [address] Amended: Links added.
--- NOTE | 2018-10-13 15:25 | NUR ---
DR. Chucky MERCADO IN ROOM ASSESSING PT., PARTICULARLY RIGHT ARM EDEMA/ECCHYMOSIS AND PEDAL PULSES. DR. MERCADO SPEAKING WITH PT. AND PT.'S SPOUSE AT BEDSIDE RE:PLAN OF CARE AND ANSWERING QUESTIONS.
--- NOTE | 2018-10-13 16:00 | NUR ---
REPOSITIONED FOR COMFORT. CALL LIGHT WITHIN REACH. ROOM DOOR OPEN, VISIBLE FROM NURSE'S STATION.
--- NOTE | 2018-10-13 20:00 | NUR ---
Awake, alert and oriented. Initial assessment done. Comfort measures done. Call light and needed items placed readily at hand. Encouraged to call prn.
[2018-10-13] MEDS ORDERED: ENOXAPARIN SODIUM 40 MG/0.4 ML SYRINGE SQ SCH (21:00)
[2018-10-13] MEDS: ATORVASTATIN CALCIUM 40 MG TABLET PO SCH ×2 (21:00→21:45)
[2018-10-14] VITALS (15 sets, daily range): BP systolic 98–158; BP diastolic 47–100
[2018-10-14] MEDS: ZOSYN 3.375GM+NS 50ML 50 ML IV SCH ×2 (01:10→08:37)
[2018-10-14] MEDS: VANCOMYCIN 1.25 GM in SODIUM CHLORIDE 0.9% 250 ML IV SCH (02:15)
[2018-10-14 05:08] LABS: HEMATOCRIT 22.8 % (36-48); MEAN CORPUSCULAR HEMOGLOBIN 30.4 pg (27.0-33.0); MEAN CORPUSCULAR HGB CONC 33.6 g/dL (32.0-36.0); MEAN CORPUSCULAR VOLUME 90.4 fL (79-99); PLATELET COUNT (AUTO) 190 K/uL (130-400); RED BLOOD CELL COUNT(AUTO) 2.52 MIL/uL (4.00-5.50); RED CELL DISTRIBUTION WIDTH 14.3 % (11.0-15.5); WHITE BLOOD COUNT (AUTO) 11.5 K/uL (4.8-10.8)
[2018-10-14] MEDS: INSULIN HUMULIN R 100 UNIT/ML 3ML SQ SCH ×4 (05:15→21:00)
[2018-10-14 05:17] LABS: CREATININE 0.7 mg/dL (0.5-1.5); MAGNESIUM 2.1 mg/dL (1.80-2.40)
[2018-10-14 05:25] LABS: POTASSIUM 2.9 mmol/L (3.5-5.1)
[2018-10-14] MEDS: LIDOCAINE HCL-MPF 1% 2ML VIAL IVP PRN ×2 (05:38→08:38)
[2018-10-14] MEDS: POTASSIUM CHLORIDE 20MEQ/100ML 100 ML IV PRN ×2 (05:38→08:38)
--- NOTE | 2018-10-14 05:53 | NUR ---
Potassium level 2.9. KCL 20 meq/100 mls infusing over 2 hours (dose # 1 of 2 doses per protocol).
[2018-10-14] MEDS: FAMOTIDINE/PF 20 MG/2 ML VIAL IV SCH (08:42)
[2018-10-14] MEDS: LISINOPRIL 5 MG TABLET PO SCH ×2 (08:58→21:41)
[2018-10-14] MEDS: ASPIRIN 81MG TAB.CHEW PO SCH (08:58)
[2018-10-14] MEDS: CHLORHEXIDINE GLUCONATE 473 ML MOUTHWASH MM SCH (08:59)
[2018-10-14] MEDS ORDERED: METOPROLOL TARTRATE 25 MG TAB PO SCH (10:15)
[2018-10-14] MEDS: POTASSIUM CHLORIDE 20 MEQ ERTAB PO SCH ×3 (11:48→21:40)
[2018-10-14] MEDS: PRASUGREL HCL 10 MG TABLET PO SCH (11:48)
[2018-10-14] MEDS: LEVOFLOXACIN 750 MG TABLET PO SCH (17:00)
[2018-10-14] MEDS: ATORVASTATIN CALCIUM 40 MG TABLET PO SCH (21:40)
[2018-10-14] MEDS: METOPROLOL TARTRATE 25 MG TAB PO SCH (21:41)
[2018-10-14] MEDS: IPRATROPIUM/ALBUTEROL SULFATE 3 ML SOLUTION IH PRN (22:03)
[2018-10-15] VITALS: BP 130/66
[2018-10-15] MEDS: IPRATROPIUM/ALBUTEROL SULFATE 3 ML SOLUTION IH PRN ×5 (01:53→23:40)
--- NOTE | 2018-10-15 01:59 | NUR ---
At 0153 administered neb TX was called by nurse that patient was complaining of SOB, I went to assess patient sat her up 45 degrees and her O2 SATS were 96% on 3L HR 104 RR 20 stated she felt better will continue to monitor . Addendum: 10/15/18 at 0237 by CONCHA RESENDEZ RT Amended: Links added.
--- NOTE | 2018-10-15 02:00 | NUR ---
Pt. verbalized feeling much better after neb treatment.
[2018-10-15 04:00] VITALS: BP 134/80
[2018-10-15 04:25] LABS: BASOPHILS % (AUTO) 1.3 % (0.0-5.0); EOSINOPHILS % (AUTO) 1.5 % (0.0-8.0); HEMATOCRIT 24.8 % (36-48); LYMPHOCYTES % (AUTO) 16.3 % (21.0-51.0); MEAN CORPUSCULAR HEMOGLOBIN 29.9 pg (27.0-33.0); MEAN CORPUSCULAR HGB CONC 33.2 g/dL (32.0-36.0); MONOCYTES % (AUTO) 12.8 % (3.0-13.0); NEUTROPHILS % (AUTO) 68.1 % (40.0-77.0); PLATELET COUNT (AUTO) 236 K/uL (130-400); RED BLOOD CELL COUNT(AUTO) 2.75 MIL/uL (4.00-5.50); RED CELL DISTRIBUTION WIDTH 14.3 % (11.0-15.5); WHITE BLOOD COUNT (AUTO) 9.2 K/uL (4.8-10.8)
[2018-10-15 04:34] LABS: B-TYPE NATRIURETIC PEPTIDE 687 pg/mL (0-100)
[2018-10-15 04:49] LABS: CREATININE 0.7 mg/dL (0.5-1.5); POTASSIUM 4.8 mmol/L (3.5-5.1)
[2018-10-15] MEDS: INSULIN HUMULIN R 100 UNIT/ML 3ML SQ SCH ×4 (05:58→21:00)
[2018-10-15 08:09] VITALS: BP 136/77
[2018-10-15] MEDS: FAMOTIDINE 20MG TAB 20 MG TAB PO SCH (10:48)
[2018-10-15] MEDS: METOPROLOL TARTRATE 25 MG TAB PO SCH ×2 (10:48→21:09)
[2018-10-15] MEDS: ASPIRIN 81MG TAB.CHEW PO SCH (10:48)
[2018-10-15] MEDS: PRASUGREL HCL 10 MG TABLET PO SCH (10:48)
[2018-10-15] MEDS: LISINOPRIL 5 MG TABLET PO SCH ×2 (10:53→21:10)
[2018-10-15] MEDS: LEVOFLOXACIN 750 MG TABLET PO SCH (10:54)
[2018-10-15] MEDS: FUROSEMIDE 10 MG/ML 4ML VIAL IV SCH ×2 (10:54→21:09)
[2018-10-15 11:59] VITALS: BP 155/70
[2018-10-15] MEDS ORDERED: ACETAMINOPHEN 325 MG TAB ONE (15:28)
[2018-10-15 15:37] VITALS: BP 139/76
[2018-10-15 20:00] VITALS: BP 132/78
[2018-10-15] MEDS: ATORVASTATIN CALCIUM 40 MG TABLET PO SCH (21:09)
[2018-10-16] VITALS: BP 122/62
[2018-10-16 04:00] VITALS: BP 133/78
[2018-10-16 04:20] LABS: BASOPHILS % (AUTO) 0.7 % (0.0-5.0); EOSINOPHILS % (AUTO) 0.4 % (0.0-8.0); HEMATOCRIT 27.4 % (36-48); LYMPHOCYTES % (AUTO) 13.8 % (21.0-51.0); MEAN CORPUSCULAR HGB CONC 34.7 g/dL (32.0-36.0); MEAN CORPUSCULAR VOLUME 89.4 fL (79-99); MONOCYTES % (AUTO) 17.4 % (3.0-13.0); NEUTROPHILS % (AUTO) 67.7 % (40.0-77.0); NUCLEATED RED BLOOD CELLS 0.1 % (0.0-0.19); PLATELET COUNT (AUTO) 258 K/uL (130-400); RED BLOOD CELL COUNT(AUTO) 3.06 MIL/uL (4.00-5.50); RED CELL DISTRIBUTION WIDTH 14.2 % (11.0-15.5); WHITE BLOOD COUNT (AUTO) 10.4 K/uL (4.8-10.8)
[2018-10-16 04:27] LABS: CREATININE 0.8 mg/dL (0.5-1.5); MAGNESIUM 1.8 mg/dL (1.80-2.40); PHOSPHORUS 3.6 mg/dL (2.5-4.9); POTASSIUM 3.6 mmol/L (3.5-5.1)
[2018-10-16 04:38] LABS: B-TYPE NATRIURETIC PEPTIDE 1210 pg/mL (0-100)
[2018-10-16] MEDS: INSULIN HUMULIN R 100 UNIT/ML 3ML SQ SCH ×4 (06:09→21:00)
[2018-10-16] MEDS: MAGNESIUM 2GM PREMIX 50ML 50 ML IV PRN (06:16)
[2018-10-16] MEDS: IPRATROPIUM/ALBUTEROL SULFATE 3 ML SOLUTION IH PRN ×3 (06:34→23:01)
[2018-10-16 07:00] VITALS: BP 118/73
--- NOTE | 2018-10-16 08:45 | NUR ---
DYSPHAGIA EVAL COMPLETED. -S/S OF ASPIRATION. RECOMMEND REGULAR, THIN LIQUIDS; PILLS WHOLE WITH LIQUIDS. Addendum: 10/16/18 at 1151 by LEIA ARGUELLES, [facility] Amended: Links added.
[2018-10-16] MEDS: FUROSEMIDE 10 MG/ML 4ML VIAL IV SCH ×2 (09:27→23:13)
[2018-10-16] MEDS: LISINOPRIL 5 MG TABLET PO SCH ×2 (09:28→21:00)
[2018-10-16] MEDS: PRASUGREL HCL 10 MG TABLET PO SCH (09:28)
[2018-10-16] MEDS: METOPROLOL TARTRATE 25 MG TAB PO SCH ×2 (09:28→23:14)
[2018-10-16] MEDS: LEVOFLOXACIN 750 MG TABLET PO SCH (09:28)
[2018-10-16] MEDS: ASPIRIN 81MG TAB.CHEW PO SCH (09:28)
[2018-10-16] MEDS: FAMOTIDINE 20MG TAB 20 MG TAB PO SCH (09:28)
[2018-10-16 11:00] VITALS: BP 101/67
[2018-10-16 16:00] VITALS: BP 104/71
[2018-10-16 19:14] VITALS: BP 109/68
[2018-10-16] MEDS: ATORVASTATIN CALCIUM 40 MG TABLET PO SCH (23:14)
[2018-10-17 01:39] VITALS: BP 152/78
[2018-10-17 03:55] VITALS: BP 107/72
[2018-10-17 04:01] LABS: BASOPHILS % (AUTO) 0.8 % (0.0-5.0); EOSINOPHILS % (AUTO) 2.2 % (0.0-8.0); HEMATOCRIT 28.9 % (36-48); LYMPHOCYTES % (AUTO) 14.7 % (21.0-51.0); MEAN CORPUSCULAR HGB CONC 33.5 g/dL (32.0-36.0); MEAN CORPUSCULAR VOLUME 89.5 fL (79-99); MONOCYTES % (AUTO) 15.3 % (3.0-13.0); PLATELET COUNT (AUTO) 335 K/uL (130-400); RED BLOOD CELL COUNT(AUTO) 3.23 MIL/uL (4.00-5.50); RED CELL DISTRIBUTION WIDTH 14.3 % (11.0-15.5)
[2018-10-17 04:04] LABS: CREATININE 0.8 mg/dL (0.5-1.5); POTASSIUM 3.3 mmol/L (3.5-5.1)
[2018-10-17 04:05] LABS: B-TYPE NATRIURETIC PEPTIDE 908 pg/mL (0-100)
[2018-10-17] MEDS ORDERED: POTASSIUM CHLORIDE 20 MEQ ERTAB PO ONE (05:46)
[2018-10-17] MEDS: IPRATROPIUM/ALBUTEROL SULFATE 3 ML SOLUTION IH PRN ×2 (06:48→19:09)
[2018-10-17 07:25] VITALS: BP 113/73
[2018-10-17] MEDS: INSULIN HUMULIN R 100 UNIT/ML 3ML SQ SCH ×2 (07:30→11:30)
[2018-10-17] MEDS: LEVOFLOXACIN 750 MG TABLET PO SCH (10:14)
[2018-10-17] MEDS: METOPROLOL TARTRATE 25 MG TAB PO SCH ×2 (10:14→20:50)
[2018-10-17] MEDS: FUROSEMIDE 10 MG/ML 4ML VIAL IV SCH ×2 (10:15→22:16)
[2018-10-17] MEDS: FAMOTIDINE 20MG TAB 20 MG TAB PO SCH (10:15)
[2018-10-17] MEDS: LISINOPRIL 5 MG TABLET PO SCH ×2 (10:15→20:50)
[2018-10-17] MEDS: ASPIRIN 81MG TAB.CHEW PO SCH (10:16)
[2018-10-17] MEDS: PRASUGREL HCL 10 MG TABLET PO SCH (10:16)
[2018-10-17] MEDS: POTASSIUM CHLORIDE 20 MEQ ERTAB PO PRN ×2 (10:26→15:54)
[2018-10-17 11:30] VITALS: BP 105/60
--- NOTE | 2018-10-17 12:38 | NUR ---
DC PLAN VISITED WITH PATIENT. PATIENT LIVES WITH SPOUSE. INDEPENDENT ABLE TO PERFORM ADL'S. PATIENT HAS NO SERVICES OR DME'S. FEELS SAFE TO RETURN HOME. Addendum: 10/17/18 at 1239 by PHOENIX CERVANTES RN CM Amended: Links added.
--- NOTE | 2018-10-17 12:41 | NUR ---
DC PLAN VISITED WITH PATIENT REGARDING DC PLANNING. GAVE PATIENT OPTIONS. WANTED TO KNOW ABOUT THE PARKING AT THE FACILITIES SINCE IS DISABLED. FINAL TWO FACILITIES WERE [facility] AND [facility]. PATIENT SAID AT THIS TIME WOULD LIKE TO GO HOME. SAYS HAS EXTRA O2 THAT SHE CAN USE IF SHE NEEDS IT. ALSO IS WILLING TO GET SOMEONE TO HELP AT HOME IF SHE NEEDS IT. Addendum: 10/17/18 at 1244 by PHOENIX CERVANTES RN CM Amended: Links added.
--- NOTE | 2018-10-17 13:20 | NUR ---
RD Follow up Pt tolerating Heart Healthy, Mechanical Soft diet with Fair appetite (PO 50%). Pt reports feeling some momentary nausea but subsided. Rec to add Ensure QD. RD to continue to monitor. Pt LBM 10/17/18. Pt monitored labs: K 3.3, Cl 99, BUN 19, Glu 119, Ca 8.2, Alb 2.0. Please notify RD as additional nutrition concerns arise. Thank you. Addendum: 10/17/18 at [address] Amended: Links added.
[2018-10-17 16:00] VITALS: BP 113/72
[2018-10-17] MEDS ORDERED: POTASSIUM CHLORIDE 20 MEQ ERTAB PO SCH (19:15)
[2018-10-17 19:27] VITALS: BP 104/65
[2018-10-17] MEDS: ATORVASTATIN CALCIUM 40 MG TABLET PO SCH (20:49)
[2018-10-17] MEDS: POTASSIUM CHLORIDE 20 MEQ ERTAB PO SCH (22:16)
[2018-10-18] VITALS (7 sets, daily range): BP systolic 86–115; BP diastolic 58–79
[2018-10-18 04:31] LABS: HEMATOCRIT 31.4 % (36-48); MEAN CORPUSCULAR HEMOGLOBIN 30.6 pg (27.0-33.0); MEAN CORPUSCULAR HGB CONC 34.2 g/dL (32.0-36.0); MEAN CORPUSCULAR VOLUME 89.5 fL (79-99); NUCLEATED RED BLOOD CELLS 0.1 % (0.0-0.19); PLATELET COUNT (AUTO) 418 K/uL (130-400)
[2018-10-18 04:42] LABS: CREATININE 0.9 mg/dL (0.5-1.5); POTASSIUM 4.3 mmol/L (3.5-5.1)
[2018-10-18 05:01] LABS: B-TYPE NATRIURETIC PEPTIDE 630 pg/mL (0-100)
[2018-10-18 05:22] LABS: BAND NEUTROPHILS % (MANUAL) 2 % (0-2); BASOPHILS % (MANUAL) 1 % (0-2); EOSINOPHILS % (MANUAL) 5 % (1-6); LYMPHOCYTES % (MANUAL) 14 % (22-44); MONOCYTES % (MANUAL) 5 % (2-9); SEGMENTED NEUTROPHILS % 73 % (40-70)
[2018-10-18 05:23] LABS: MAN.DIFF COMMENT-IMPRESSION MANUAL DIFFERENTIAL; PLATELET MORPHOLOGY COMMENT SLIGHT INCREASED
[2018-10-18] MEDS: LISINOPRIL 5 MG TABLET PO SCH ×2 (09:00→21:20)
[2018-10-18] MEDS: LEVOFLOXACIN 750 MG TABLET PO SCH (09:03)
[2018-10-18] MEDS: METOPROLOL TARTRATE 25 MG TAB PO SCH ×2 (09:03→21:21)
[2018-10-18] MEDS: FAMOTIDINE 20MG TAB 20 MG TAB PO SCH (09:03)
[2018-10-18] MEDS: ASPIRIN 81MG TAB.CHEW PO SCH (09:04)
[2018-10-18] MEDS: PRASUGREL HCL 10 MG TABLET PO SCH (09:04)
[2018-10-18] MEDS: POTASSIUM CHLORIDE 20 MEQ ERTAB PO SCH ×4 (09:10→21:21)
[2018-10-18] MEDS: ATORVASTATIN CALCIUM 40 MG TABLET PO SCH (21:20)
[2018-10-19 05:05] VITALS: BP 100/62
[2018-10-19 07:00] VITALS: BP 104/65
--- NOTE | 2018-10-19 09:30 | NUR ---
AM ASSESSMENT PT LAYING IN BED, HOB ELEVATED 30 DEGREES, WATCHING TV. A/O X 3. NO SOB. NO DISTRESS NOTED. DENIES CHEST PAIN OR DISCOMFORT. DENIES PALPITATIONS. TELE: SR 90s. DENIES N/V AND/OR DIARRHEA. RT GROIN SOFT, NON-TENDER. NO HEMATOMA. (+) BILATERAL PEDAL PULSES. BLE PINK & WARM TO TOUCH. UP W/ASSISTANCE. INSTRUCTED TO CALL FOR ASSISTANCE. CALL ANNETTE W/IN REACH.
[2018-10-19] MEDS: POTASSIUM CHLORIDE 20 MEQ ERTAB PO SCH (09:40)
[2018-10-19] MEDS: LEVOFLOXACIN 750 MG TABLET PO SCH (09:40)
[2018-10-19] MEDS: ASPIRIN 81MG TAB.CHEW PO SCH (09:41)
[2018-10-19] MEDS: PRASUGREL HCL 10 MG TABLET PO SCH (09:41)
[2018-10-19] MEDS: FAMOTIDINE 20MG TAB 20 MG TAB PO SCH (09:41)
[2018-10-19] MEDS: LISINOPRIL 5 MG TABLET PO SCH (09:42)
[2018-10-19] MEDS: METOPROLOL TARTRATE 25 MG TAB PO SCH ×2 (09:42→23:45)
[2018-10-19 11:00] VITALS: BP 104/64
--- NOTE | 2018-10-19 14:14 | NUR ---
DC PLAN VISITED WITH PATIENTKt SOLIZ SIGNED FOR [facility]. INFO SENT INCLUDING [facility] RECEIVED ACCEPTANCE AT 1232. NURSE AWARE. PENDING REPEAT ECHO. DC PLAN FOR TODAY VIA FACILITY VEHICLE. Addendum: 10/19/18 at 1416 by PHOENIX CERVANTES RN CM Amended: Links added.
--- NOTE | 2018-10-19 15:30 | NUR ---
MD NOTIFICATION DR MERCADO @ POD A NURSE'S STATION ACCOMPANIED BY Sara SPENCE. NOTIFIED PT HAS BEEN ACCEPTED TO [facility] & PLAN IS TO DISCHARGE TODAY, 2nd 2D ECHO ORDERED BY THIS ADMISSION HAS BEEN DONE. DR MERCADO TO REVIEW 2D ECHO & RETURN TO NURSE'S STATION AND NOTIFY STAFF IF MAY PROCEED W/DISCHARGE TO [facility] TODAY.
[2018-10-19 16:00] VITALS: BP 136/64
[2018-10-19] MEDS ORDERED: METO25 PO (19:50)
[2018-10-19] MEDS ORDERED: LEVO750T46 PO (19:50)
[2018-10-19] MEDS ORDERED: LISI-617 PO (19:50)
[2018-10-19] MEDS ORDERED: FAMO20TA8 PO (19:50)
[2018-10-19] MEDS ORDERED: PRAS10TA6 PO (19:50)
[2018-10-19] MEDS ORDERED: ATOR40TA69 PO (19:50)
[2018-10-19] MEDS ORDERED: ASPI-1005 PO (19:50)
[2018-10-19 19:58] VITALS: BP 95/55
--- NOTE | 2018-10-19 20:00 | NUR ---
MD NOTIFICATION DR DEL CID NOTIFIED DR MERCADO HASN'T CLEARED PT FOR DC TO [facility] TODAY. UPDATED ON DR MERCADO'S PLAN OF CARE @ THIS TIME. DISCHARGE TO BE HELD FOR TODAY.
[2018-10-19] MEDS: ATORVASTATIN CALCIUM 40 MG TABLET PO SCH (21:18)
[2018-10-19 23:41] VITALS: BP 111/70
[2018-10-20 04:33] VITALS: BP 90/54
[2018-10-20 07:25] VITALS: BP 93/58
[2018-10-20] MEDS: METOPROLOL TARTRATE 25 MG TAB PO SCH ×2 (09:00→20:04)
[2018-10-20] MEDS: PRASUGREL HCL 10 MG TABLET PO SCH (09:27)
[2018-10-20] MEDS: ASPIRIN 81MG TAB.CHEW PO SCH (09:27)
[2018-10-20] MEDS: FAMOTIDINE 20MG TAB 20 MG TAB PO SCH (09:28)
[2018-10-20] MEDS: LISINOPRIL 5 MG TABLET PO SCH (09:29)
[2018-10-20 10:51] VITALS: BP 90/60
[2018-10-20] MEDS: LEVOFLOXACIN 750 MG TABLET PO SCH (12:37)
[2018-10-20 15:20] VITALS: BP 100/61
[2018-10-20 19:28] VITALS: BP 100/63
[2018-10-20] MEDS: ATORVASTATIN CALCIUM 40 MG TABLET PO SCH (20:04)
[2018-10-20 23:33] VITALS: BP 93/59
[2018-10-21 04:33] VITALS: BP 93/57
[2018-10-21] MEDS ORDERED: IPRATROPIUM/ALBUTEROL SULFATE 3 ML SOLUTION IH ONE (06:40)
[2018-10-21 07:08] VITALS: BP 88/53
[2018-10-21] MEDS: LISINOPRIL 5 MG TABLET PO SCH (09:00)
[2018-10-21] MEDS: METOPROLOL TARTRATE 25 MG TAB PO SCH ×2 (09:00→20:03)
[2018-10-21] MEDS: PRASUGREL HCL 10 MG TABLET PO SCH (09:05)
[2018-10-21] MEDS: LEVOFLOXACIN 750 MG TABLET PO SCH (09:05)
[2018-10-21] MEDS: ASPIRIN 81MG TAB.CHEW PO SCH (09:06)
[2018-10-21] MEDS: FAMOTIDINE 20MG TAB 20 MG TAB PO SCH (09:06)
[2018-10-21] MEDS ORDERED: SODIUM CHLORIDE 0.9% 250 ML IV ONE (10:49)
[2018-10-21 11:05] VITALS: BP 92/55
--- NOTE | 2018-10-21 12:30 | NUR ---
PT WAS DISCHARGED HOME AND NO PROBLEMS NOTED ON DISCHARGE, DR. HARDING HAD ADVISED PT TO SEE PCP IN 2 TO 3 DAYS. PT HAVING NO NEURO DEFECITS.
[2018-10-21 15:01] VITALS: BP 91/57
--- NOTE | 2018-10-21 17:53 | NUR ---
PT IS TO STAY IN HOSPITAL DUE TO HER BP BEING LOW AND HER BP MEDS WERE ON HOLD.
[2018-10-21 19:20] VITALS: BP 86/54
[2018-10-21] MEDS: ATORVASTATIN CALCIUM 40 MG TABLET PO SCH (20:03)
--- NOTE | 2018-10-21 21:00 | NUR ---
PT BLOOD PRESSURE HAS BEEN IMPROVING SLIGHTLY. HELD LOPRESSOR DUE TO LOW BLOOD PRESSURE. NEW IV STARTED. 22G TO LEFT FOREARM.
[2018-10-22 00:16] VITALS: BP 98/59
[2018-10-22 03:56] LABS: BASOPHILS % (AUTO) 1.3 % (0.0-5.0); EOSINOPHILS % (AUTO) 3.8 % (0.0-8.0); HEMATOCRIT 30.8 % (36-48); LYMPHOCYTES % (AUTO) 19.5 % (21.0-51.0); MEAN CORPUSCULAR HGB CONC 32.9 g/dL (32.0-36.0); MONOCYTES % (AUTO) 11.1 % (3.0-13.0); NEUTROPHILS % (AUTO) 64.3 % (40.0-77.0); PLATELET COUNT (AUTO) 589 K/uL (130-400); RED BLOOD CELL COUNT(AUTO) 3.38 MIL/uL (4.00-5.50); RED CELL DISTRIBUTION WIDTH 14.4 % (11.0-15.5); WHITE BLOOD COUNT (AUTO) 10.6 K/uL (4.8-10.8)
[2018-10-22 04:17] LABS: CREATININE 0.9 mg/dL (0.5-1.5); POTASSIUM 4.1 mmol/L (3.5-5.1)
[2018-10-22 04:24] VITALS: BP 99/58
[2018-10-22 07:16] VITALS: BP 102/52
--- NOTE | 2018-10-22 08:00 | NUR ---
ASSESSMENT PT IS AAOX4 DENIES CP DENIES SOB DENIES NV NO COMPLAINTS, SITTING UPRIGHT IN BED. LIFE VEST IN PLACE. AM MEDS GIVEN. CALL LIGHT WITHIN REACH.
[2018-10-22] MEDS: ASPIRIN 81MG TAB.CHEW PO SCH (08:06)
[2018-10-22] MEDS: LEVOFLOXACIN 750 MG TABLET PO SCH (08:06)
[2018-10-22] MEDS: PRASUGREL HCL 10 MG TABLET PO SCH (08:06)
[2018-10-22] MEDS: FAMOTIDINE 20MG TAB 20 MG TAB PO SCH (08:06)
[2018-10-22] MEDS: METOPROLOL TARTRATE 25 MG TAB PO SCH (08:07)
[2018-10-22] MEDS: LISINOPRIL 5 MG TABLET PO SCH (08:07)
[2018-10-22 11:00] VITALS: BP 103/53
--- NOTE | 2018-10-22 12:00 | NUR ---
OK FOR DC HOME PER DR JURADO AND DR Yasmin COBIAN
--- NOTE | 2018-10-22 14:19 | NUR ---
DC TO [facility] REPORT GIVEN TO CLAUDIA (NURSE). PIV REMOVED CATH TIP INTACT, TELE PACK REMOVED. LIFEVEST IS ON PATIENT. ALL BELONGINGS TAKEN WITH PATIENT. [facility] PICKED UP PATIENT.
== END 2018-10-22 14:00 | DRG 215 ==
LOC: EDH 13:32 → EDHIP 15:55 → 2BH 16:21 → 2AH 10-14 17:39
PROVIDERS: ADMIT Internal Medicine; ATTEND Internal Medicine
PROC: 027034Z Dilation of Coronary Artery, One Artery with Drug-eluting Intraluminal Device, Percutaneous Approach (ICD-10-PCS; principal; 2018-10-10)
PROC: 02HA3RZ Insertion of Short-term External Heart Assist System into Heart, Percutaneous Approach (ICD-10-PCS; 2018-10-10)
PROC: 5A0221D Assistance with Cardiac Output using Impeller Pump, Continuous (ICD-10-PCS; 2018-10-10)
PROC: 02C03ZZ Extirpation of Matter from Coronary Artery, One Artery, Percutaneous Approach (ICD-10-PCS; 2018-10-10)
PROC: 4A023N8 Measurement of Cardiac Sampling and Pressure, Bilateral, Percutaneous Approach (ICD-10-PCS; 2018-10-10)
PROC: B2111ZZ Fluoroscopy of Multiple Coronary Arteries using Low Osmolar Contrast (ICD-10-PCS; 2018-10-10)
PROC: B2161ZZ Fluoroscopy of Right and Left Heart using Low Osmolar Contrast (ICD-10-PCS; 2018-10-10)
PROC: 5A1945Z Respiratory Ventilation, 24-96 Consecutive Hours (ICD-10-PCS; 2018-10-10)
PROC: 0BH17EZ Insertion of Endotracheal Airway into Trachea, Via Natural or Artificial Opening (ICD-10-PCS; 2018-10-10)
PROC: 02PA0RZ Removal of Short-term External Heart Assist System from Heart, Open Approach (ICD-10-PCS; 2018-10-12)
DX: I21.09 ST elevation (STEMI) myocardial infarction involving other coronary artery of anterior wall (principal); J96.00 Acute respiratory failure, unspecified whether with hypoxia or hypercapnia; R57.0 Cardiogenic shock; I50.43 Acute on chronic combined systolic (congestive) and diastolic (congestive) heart failure; I47.2 Ventricular tachycardia; N39.0 Urinary tract infection, site not specified; G93.49 Other encephalopathy; J98.11 Atelectasis; B96.20 Unspecified Escherichia coli [E. coli] as the cause of diseases classified elsewhere; I25.5 Ischemic cardiomyopathy; D64.9 Anemia, unspecified; E78.5 Hyperlipidemia, unspecified; E87.6 Hypokalemia; G24.9 Dystonia, unspecified; I11.0 Hypertensive heart disease with heart failure; I25.10 Atherosclerotic heart disease of native coronary artery without angina pectoris; I49.5 Sick sinus syndrome; J44.9 Chronic obstructive pulmonary disease, unspecified; S40.021A Contusion of right upper arm, initial encounter; I25.2 Old myocardial infarction; Z78.0 Asymptomatic menopausal state; Z87.891 Personal history of nicotine dependence; Z90.710 Acquired absence of both cervix and uterus
CPT/HCPCS: 33990; 36415; 36600; 71045; 71250; 80048; 80053; 80061; 80076; 80202; 81001; 82040; 82550; 82803; 82948; 83036; 83605; 83735; 83874; 83880; 84100; 84132; 84443; 84484; 85025; 85027; 85610; 85730; 86850; 86900; 86901; 86922; 87040; 87071; 87077; 87088; 87186; 87205; 87804; 87807; 92610; 93005; 93306; 93308; 93460; 94002; 94003; 94150; 94640; 94664; 97039; 99291; A4357; C1769; C1887; C1894; C9606; G0378; J0461; J0583; J0690; J0696; J1265; J1327; J1644; J1650; J1940; J2250; J2405; J2543; J2704; J3010; J3370; J3475; J3480; J3490; J7030; J7040; J7060; J7120; Q9967

== ENCOUNTER → 2019-01-11 | Outpatient (CLI) | payer MEDICARE ==
[~2019-01-11] MED LIST: ASPI-1005 PO; ATOR40TA69 PO; FAMO20TA8 PO; LEVO750T46 PO; LISI-617 PO; METO25 PO; PRAS10TA6 PO
== END | disposition home or self-care (01) ==
LOC: SHCH 15:42
PROVIDERS: ATTEND Internal Medicine Cardiovascular Disease
DX: I34.0 Nonrheumatic mitral (valve) insufficiency (principal); I25.10 Atherosclerotic heart disease of native coronary artery without angina pectoris
CPT/HCPCS: 93306

== ENCOUNTER → 2019-12-19 | Outpatient (CLI) | payer MEDICARE | END | disposition home or self-care (01) | LOC: SHCH 10:42 | PROVIDERS: ATTEND Internal Medicine Cardiovascular Disease | DX: I50.22 Chronic systolic (congestive) heart failure (principal) | CPT/HCPCS: 93306; 93356 ==

== ENCOUNTER → 2020-01-15 | Outpatient (CLI) | payer MEDICARE | END | disposition home or self-care (01) | LOC: SHCH 10:58 | PROVIDERS: ATTEND Internal Medicine Cardiovascular Disease | DX: I50.22 Chronic systolic (congestive) heart failure (principal) | CPT/HCPCS: 78481; A9512 ==

== ENCOUNTER 2022-08-26 07:04 | Observation (INO) | payer MEDICARE ==
[2022-08-20 10:43] LABS: BASOPHILS % (AUTO) 1.6 % (0.0-5.0); EOSINOPHILS % (AUTO) 2.5 % (0.0-8.0); HEMATOCRIT 42.2 % (36-48); LYMPHOCYTES % (AUTO) 33.8 % (21.0-51.0); MEAN CORPUSCULAR HEMOGLOBIN 29.4 pg (27.0-33.0); MEAN CORPUSCULAR HGB CONC 32.9 g/dL (32.0-36.0); MEAN CORPUSCULAR VOLUME 89.2 fL (79-99); MONOCYTES % (AUTO) 10.6 % (3.0-13.0); NEUTROPHILS % (AUTO) 51.2 % (40.0-77.0); PLATELET COUNT (AUTO) 284 K/uL (130-400); RED BLOOD CELL COUNT(AUTO) 4.73 MIL/uL (4.00-5.50); RED CELL DISTRIBUTION WIDTH 13.4 % (11.0-15.5); WHITE BLOOD COUNT (AUTO) 6.8 K/uL (4.8-10.8)
[2022-08-20 11:01] LABS: CREATININE 0.9 mg/dL (0.5-1.5)
[2022-08-20 11:05] LABS: INR 0.96 (0.85-1.15); PROTHROMBIN TIME 10.5 SEC (9.6-11.6)
[2022-08-20 11:07] LABS: PARTIAL THROMBOPLASTIN TIME 28.5 SEC (26.3-35.5)
[2022-08-20 11:24] LABS: APPEARANCE,URINE CLEAR (CLEAR); BILIRUBIN,URINE NEGATIVE (NEGATIVE); COLOR,URINE YELLOW (YELLOW); GLUCOSE, URINE (UA) NEGATIVE (NEGATIVE); KETONES,URINE NEGATIVE (NEGATIVE); LEUKOCYTE ESTERASE ,URINE NEGATIVE Leu/uL (NEGATIVE); NITRATE,URINE NEGATIVE (NEGATIVE); OCCULT BLOOD,URINE TRACE-INTACT (NEGATIVE); PH,URINE 5.5 (5.0-8.0); PROTEIN,URINE NEGATIVE (NEGATIVE); UROBILINOGEN,URINE 0.2 mg/dL (0.2-1.0)
[2022-08-20 11:36] LABS: SQUAMOUS EPITHELIAL CELL,UR 50-100 /HPF (0-2)
[2022-08-20 11:37] LABS: BACTERIA,URINE Moderate /HPF (None Seen); RBC,URINE 0-1 /HPF (0-1); WBC,URINE 0-1 /HPF (0-1)
[2022-08-20 11:49] VITALS: BP 131/66
[~2022-08-26] VITALS: Ht 172.7 cm; Wt 71.4 kg
[2022-08-26] VITALS (19 sets, daily range): BP systolic 107–142; BP diastolic 54–74
[~2022-08-26 07:04] MED LIST changes: -ASPI-1005 PO; -ATOR40TA69 PO; +ESTR1PAT86 TD; -FAMO20TA8 PO; -LEVO750T46 PO; -LISI-617 PO; -METO25 PO; -PRAS10TA6 PO
[2022-08-26] MEDS ORDERED: CEFAZOLIN SODIUM 2 GM VIAL ONE (07:08)
[2022-08-26] MEDS ORDERED: GENTAMICIN 80 MG/NS 100 ML PB 100 ML IV ONE (07:08)
[2022-08-26] MEDS ORDERED: LACTATED RINGERS 1000ML 1,000 ML IV ONE (07:08)
[2022-08-26] MEDS ORDERED: ESTROGENS,CONJUGATED 0.625 MG/GM 42.5 GM VAG CRM VG ONE (08:38)
[2022-08-26] MEDS ORDERED: CEFAZOLIN SODIUM 1 GM VIAL ONE (08:38)
[2022-08-26] MEDS ORDERED: LIDOCAINE 1%-EPI 1:100,000 20 ML VIAL IJ ONE (08:38)
[2022-08-26] MEDS ORDERED: LIDOCAINE PF 100MG/5ML (2%) SYRINGE 5ML ONE (09:42)
[2022-08-26] MEDS ORDERED: PROPOFOL 10 MG/ML 20ML VIAL IV ONE (09:43)
[2022-08-26] MEDS ORDERED: FENTANYL CITRATE PF 50 MCG/1 ML 2ML VIAL ONE (09:43)
[2022-08-26] MEDS ORDERED: MIDAZOLAM HCL 1 MG/ML 2ML VIAL ONE (09:43)
[2022-08-26] MEDS ORDERED: CEFAZOLIN SODIUM 2 GM VIAL IVPB ONE (09:45)
[2022-08-26] MEDS ORDERED: EPHEDRINE SULFATE 50 MG/ML AMPULE ONE (10:18)
[2022-08-26] MEDS ORDERED: ACETAMINOPHEN 325 MG TAB PO PRN (13:30)
[2022-08-26] MEDS ORDERED: ONDANSETRON 4MG INJ IVP PRN (13:30)
[2022-08-26] MEDS ORDERED: TRAMADOL HCL 50 MG TABLET PO PRN (13:30)
[2022-08-27 03:41] VITALS: BP 132/72
[2022-08-27 08:00] VITALS: BP 128/77
== END 2022-08-27 10:00 | disposition home or self-care (01) ==
LOC: DAH 07:04 → WSH 07:05
PROVIDERS: ADMIT Urology; ATTEND Urology
DX: N39.3 Stress incontinence (female) (male) (principal); Z20.822 Contact with and (suspected) exposure to COVID-19; Z79.899 Other long term (current) drug therapy
CPT/HCPCS: 80048; 85025; 85610; 85730; 87088; 87426; 81001; 36415; 71045; 93005; 57288; 96365; A6260; G0378 ×25; G0379; A4663; J7030; A4215 ×2; A4452; A4344; C1771; J7120; J3010; J0690 ×3; J3490 ×2; J2001; J2250; J2704; J1580; G0168; A4649; A4223; A4222; A4221; A4600

== ENCOUNTER → 2022-10-07 | Outpatient (CLI) | payer MEDICARE ==
[2022-10-07 09:02] LABS: BASOPHILS % (AUTO) 2.2 % (0.0-5.0); EOSINOPHILS % (AUTO) 4.6 % (0.0-8.0); HEMATOCRIT 41.7 % (36-48); MEAN CORPUSCULAR HEMOGLOBIN 29.9 pg (27.0-33.0); MEAN CORPUSCULAR HGB CONC 33.1 g/dL (32.0-36.0); MEAN CORPUSCULAR VOLUME 90.5 fL (79-99); MONOCYTES % (AUTO) 9.9 % (3.0-13.0); PLATELET COUNT (AUTO) 270 K/uL (130-400); RED BLOOD CELL COUNT(AUTO) 4.61 MIL/uL (4.00-5.50); RED CELL DISTRIBUTION WIDTH 13.6 % (11.0-15.5); WHITE BLOOD COUNT (AUTO) 6.3 K/uL (4.8-10.8)
[2022-10-07 09:23] LABS: ALBUMIN 3.3 g/dL (3.5-5.0); CREATININE 0.9 mg/dL (0.5-1.5); POTASSIUM 4.3 mmol/L (3.5-5.1); THYROID STIMULATING HORMONE 1.6 uIU/mL (0.36-3.74); TOTAL PROTEIN, SERUM 6.8 g/dL (6.0-8.3)
== END | disposition home or self-care (01) ==
LOC: RAH 08:26
PROVIDERS: ATTEND Family Medicine
DX: R09.89 Other specified symptoms and signs involving the circulatory and respiratory systems (principal); I50.9 Heart failure, unspecified; E78.5 Hyperlipidemia, unspecified; M85.80 Other specified disorders of bone density and structure, unspecified site
CPT/HCPCS: 36415; 80053; 80061; 82306; 84443; 85025; 93880

== ENCOUNTER → 2022-10-14 | Outpatient (CLI) | payer MEDICARE | END | disposition home or self-care (01) | LOC: LAB 15:09 | PROVIDERS: ATTEND Internal Medicine Cardiovascular Disease | DX: I50.22 Chronic systolic (congestive) heart failure (principal) | CPT/HCPCS: 36415; 83880 ==

== ENCOUNTER → 2022-12-16 | Outpatient (CLI) | payer MEDICARE ==
[2022-12-16 16:29] LABS: CREATININE 1.1 mg/dL (0.5-1.5); POTASSIUM 4.5 mmol/L (3.5-5.1)
== END | disposition home or self-care (01) ==
LOC: LAB 10:00
PROVIDERS: ATTEND Internal Medicine Cardiovascular Disease
DX: I50.22 Chronic systolic (congestive) heart failure (principal)
CPT/HCPCS: 36415; 80048; 83880